=== PATIENT | male | born 1950 | race Caucasian/White ===

== ENCOUNTER 2016-11-17 13:58 | Emergency (ER) | payer MEDICARE, BC ==
[2016-11-17] MEDS ORDERED: Sulfamethoxazole/Trimethoprim 800-160 MG Tab ONE (14:05)
--- NOTE | 2016-11-17 20:57 | EDM.PDOC ---
ED HPI GENERAL MEDICAL PROBLEM - General Chief Complaint: General Stated Complaint: INJURY TO RT TREVINO Time Seen by Provider: 11/17/16 14:00 Source of Information: Reports: Patient History Limitations: Reports: No Limitations - History of Present Illness INITIAL COMMENTS - FREE TEXT/NARRATIVE: Pt claims that he has been stacking some fire wood for winter. The pile of wood accidentally fell and his the right trevino of the tibia and sustained an open cut wound of the right leg. He did clean and apply pressure and came into the emergency room. No pain, no tingling or numbness in the leg. HE is able to walk without discomfort. He is upto date on his tetanus. no other injuries. Onset: Today Onset Date: 11/17/16 Onset Time: 12:00 Location: Reports: Lower Extremity, Right Quality: Reports: Ache Severity: Mild Associated Symptoms: Denies: Confusion, Headaches, Nausea/Vomiting, Shortness of Breath, Syncope - Related Data Allergies Allergy/AdvReac Type Severity Reaction Status Date / Time No Known Allergies Allergy Verified 11/17/16 16:00 Home Meds: Home Meds . [Unable to Verify Home Med List] 11/17/16 [History] ED ROS GENERAL - Review of Systems Review Of Systems: See Below Constitutional: Denies: Fever, Chills HEENT: Denies: Throat Pain, Throat Swelling, Vision Change Respiratory: Denies: Cough, Sputum Cardiovascular: Denies: Chest Pain, Lightheadedness GI/Abdominal: Denies: Abdominal Pain, Nausea, Vomiting : Denies: Dysuria Musculoskeletal: Denies: Back Pain, Joint Pain, Joint Swelling Skin: Reports: Bruising. Denies: Pruritis, Rash ED EXAM, GENERAL - Physical Exam Exam: See Below Exam Limited By: No Limitations General Appearance: Alert, WD/WN, No Apparent Distress Eye Exam: Bilateral Eye: EOMI, PERRL Ears: Normal External Exam, Normal Canal, Hearing Grossly Normal, Normal TMs Nose: Normal Inspection, Normal Mucosa, No Blood Throat/Mouth: Normal Inspection, Normal Lips, Normal Teeth, Normal Gums, Normal Oropharynx, Normal Voice, No Airway Compromise Head: Atraumatic, Normocephalic Neck: Normal Inspection, Supple, Non-Tender, Full Range of Motion Respiratory/Chest: No Respiratory Distress, Lungs Clear, Normal Breath Sounds, No Accessory Muscle Use, Chest Non-Tender Cardiovascular: Normal Peripheral Pulses, Regular Rate, Rhythm, No Edema, No Gallop, No JVD, No Murmur, No Rub Extremities: Other (right leg: there is a curvilinear superficail skin tear over the lower 1/3rd leg over the trevino of the tibia. It is about 6 cm in length , there is loss of skin over the middle half of the laceration and open wound. which is hemostatic. Subcutaneous tissue exposed.) Course - Vital Signs Text/Narrative:: Pt does have a skin tear like superficial curvilinear laceration. there is loss of skin over the middle 1/2 of the laceration, which does appear like the skin might be stuck to the wood pile. The wound is superficial and subcutaneous tissue is exposed. there is no skin available to cover the wound and also the edges are far away to approximate. Hence wound was cleaned with Hibeclens solution and sterile simple antibiotic ointment dressing done. Pt reassured that this wound has to heal by primary intention. As the wound is on leg, I have empirically covered him with Bactrim for infection. Advised daily dressing and do not wet the wound until dry and scabbing. If there is excessive erythema , pain or discharge advised to return to emergency room. Last Recorded V/S: Last Vital Signs Temp 98.6 F 11/17/16 16:08 Pulse 63 11/17/16 16:08 Resp 18 11/17/16 16:08 BP 179/101 H 11/17/16 16:08 Pulse Ox 100 11/17/16 16:08 - Orders/Labs/Meds Meds: Medications Discontinued Medications Generic Name Dose Route Start Last Admin Trade Name Charles PRN Reason Stop Dose Admin Trimethoprim/Sulfamethoxazole 20 tab 11/17/16 14:05 Septra Ds .ROUTE 11/17/16 14:06 .STK-MED ONE Departure - Departure Time of Disposition: 14:40 Disposition: Home, Self-Care 01 Condition: Good Clinical Impression: Open leg wound - Discharge Information Referrals: PCP,None [Primary Care Provider] - Forms: ED Department Discharge - Problem List & Annotations (1) Open leg wound SNOMED Code(s): 27672258 Code(s): S81.809A - UNSPECIFIED OPEN WOUND, UNSPECIFIED LOWER LEG, INIT ENCNTR Status: Acute - Problem List Review Problem List Initiated/Reviewed/Updated: Yes - Assessment/Plan Assessment:: Left leg open wound Plan: Pt does have a skin tear like superficial curvilinear laceration. there is loss of skin over the middle 1/2 of the laceration, which does appear like the skin might be stuck to the wood pile. The wound is superficial and subcutaneous tissue is exposed. there is no skin available to cover the wound and also the edges are far away to approximate. Hence wound was cleaned with Hibeclens solution and sterile simple antibiotic ointment dressing done. Pt reassured that this wound has to heal by primary intention. As the wound is on leg, I have empirically covered him with Bactrim for infection. Advised daily dressing and do not wet the wound until dry and scabbing. If there is excessive erythema , pain or discharge advised to return to emergency room.
== END 2016-11-17 14:30 | disposition home or self-care (01) ==
LOC: LB.ED 13:58
DX: S81.811A Laceration without foreign body, right lower leg, initial encounter (principal); W20.8XXA Other cause of strike by thrown, projected or falling object, initial encounter; Y93.89 Activity, other specified
CPT/HCPCS: 99283; A9270